=== PATIENT | female | born 1940 | race Caucasian/White ===

== ENCOUNTER 2021-11-10 21:16 | Emergency (ER) | payer MEDICARE ==
[~2021-11-10] VITALS: Ht 157.5 cm; Wt 65.0 kg
[2021-11-10] MEDS ORDERED: METO25 PO (21:29)
[2021-11-10] MEDS ORDERED: FURO20 PO (21:29)
[2021-11-10] MEDS ORDERED: ALBU8.5H8 IH (21:29)
[2021-11-10] MEDS ORDERED: PROP10TA73 PO (21:29)
[2021-11-10] MEDS ORDERED: SACC250C9 PO (21:29)
[2021-11-10] MEDS ORDERED: LEVO25TA9 PO (21:29)
[2021-11-10] MEDS ORDERED: DABI75CA4 PO (21:29)
[2021-11-10] MEDS ORDERED: ROSU10TA72 PO (21:29)
[2021-11-10] MEDS ORDERED: FURO40 PO (21:47)
[2021-11-10] MEDS ORDERED: POTA-206 PO (21:47)
[2021-11-10] MEDS ORDERED: ROPI0.2535 PO (21:47)
[2021-11-10 22:17] LABS: BASOPHILS % (AUTO) 0.6 % (0.0-2.0); EOSINOPHILS % (AUTO) 1.3 % (1.0-6.0); HEMATOCRIT 35.6 % (36-46); HEMOGLOBIN 11.7 g/dL (12.0-16.0); LYMPHOCYTES # (AUTO) 0.8 K/uL (1.0-4.8); LYMPHOCYTES % (AUTO) 13.1 % (22.0-44.0); MEAN CORPUSCULAR HEMOGLOBIN 26.9 pg (26.0-34.0); MEAN CORPUSCULAR HGB CONC 32.8 G/dL (31.0-37.0); MEAN CORPUSCULAR VOLUME 82 fL (80-100); MONOCYTES # (AUTO) 0.6 K/uL (0.1-1.0); MONOCYTES % (AUTO) 8.7 % (2.0-9.0); NEUTROPHILS # (AUTO) 4.8 K/uL (1.8-7.7); NEUTROPHILS % (AUTO) 76.3 % (40.0-70.0); PLATELET COUNT (AUTO) 221 K/uL (150-450); RED BLOOD CELL COUNT(AUTO) 4.34 MIL/uL (4.00-5.20)
[2021-11-10 22:25] LABS: CALCIUM, TOTAL 9.4 mg/dL (8.8-10.5); CREATININE 1.08 mg/dL (0.60-1.30); POTASSIUM 3.6 mmol/L (3.5-5.1)
[2021-11-10 22:32] LABS: ALBUMIN 3.3 g/dL (3.4-5.0); TOTAL PROTEIN, SERUM 6.6 g/dL (6.4-8.2)
[2021-11-10 23:30] VITALS: BP 140/89
== END 2021-11-10 23:45 | disposition home or self-care (01) ==
LOC: EMS 21:20
DX: R60.0 Localized edema (principal); I10 Essential (primary) hypertension; E78.00 Pure hypercholesterolemia, unspecified; I48.91 Unspecified atrial fibrillation; Z88.5 Allergy status to narcotic agent; Z79.899 Other long term (current) drug therapy
CPT/HCPCS: 80053; 85025; 93971; 99284